=== PATIENT | female | born 1955 | race Caucasian/White ===

== ENCOUNTER → 2016-05-25 | Outpatient (CLI) | payer BC, OTHER ==
[~2016-05-25] MED LIST: ACET-1256 PO; ALPPOPS5 OPB; AMIT10TA6 PO; ASCA500 PO; ASPI81TA28 PO; CLTP PO; CMD75 PO; GLUC10007 PO; MULT-506 PO; SIMV20TA2 PO; TRAV0.00 OPB; WARF5TAB7 PO
--- NOTE | 2016-05-25 13:57 | MAMMOGRAPHY REPORT ---
BILATERAL DIGITAL SCREENING MAMMOGRAM WITH CAD: 05/25/2016 TECHNIQUE: Current study was also evaluated with a Computer Aided Detection (CAD) system. Bilatera l CC and MLO views were obtained. COMPARISON: Comparison is made to exams dated: 05/23/2015 mammogram, 05/13/2014 mammogram, 05/08/2013 m ammogram, 05/01/2012 mammogram, and 04/30/2011 mammogram - [facility]. BREAST COMPOSITION: There are scattered areas of fibroglandular density in both breasts. FINDINGS: No suspicious masses, calcifications, or areas of architectural distortion are noted in e ither breast. There has been no significant interval change compared to prior exams. Bilateral kamryn gn-appearing calcifications are not significantly changed. IMPRESSION: ACR BI-RADS CATEGORY 2: BENIGN There is no mammographic evidence of malignancy. A 1 year screening mammogram is recommended. The p atient will receive written notification of the results. Approximately 10% of breast cancers are not detected with mammography. A negative mammographic repor t should not delay biopsy if a clinically suggestive mass is present. Silvia Garza M.D. /:05/25/2016 07:45:41 City Engineer: Melva SEVILLA([place])(M), [facility] letter sent: Normal 1/2 BI-RADS Code: ACR BI-RADS Category 2: Benign
== END | disposition home or self-care (01) ==
LOC: C.MAMM 07:05
PROVIDERS: ATTEND Family Medicine
DX: Z12.31 Encounter for screening mammogram for malignant neoplasm of breast (principal)

== ENCOUNTER → 2017-05-28 | Outpatient (CLI) | payer BC, OTHER ==
--- NOTE | 2017-05-28 15:13 | MAMMOGRAPHY REPORT ---
BILATERAL DIGITAL SCREENING MAMMOGRAM TOMOSYNTHESIS WITH CAD: 05/28/2017 CLINICAL HISTORY: Routine screening. Patient has no complaints. TECHNIQUE: Breast tomosynthesis in addition to standard 2D mammography was performed. Current study was also evaluated with a Computer Aided Detection (CAD) system. COMPARISON: Comparison is made to exams dated: 05/25/2016 mammogram, 05/23/2015 mammogram, 05/13/2014 m ammogram, 05/12/2013 mammogram, 05/08/2013 mammogram, and 05/01/2012 mammogram - [facility]. BREAST COMPOSITION: There are scattered areas of fibroglandular density in both breasts. FINDINGS: There are possible groupings of faint microcalcifications in the upper outer anterior and subareolar right breast, for which additional spot magnification views are recommended. There are scattered benign-appearing punctate microcatheter dictations of the left breast. A stable nodular asymmetry in the medial anterior right breast on the CC view appears very similar to the 04/03 mammogram, most likely normal overlapping tissue. No other suspicious mass, architectural dist ortion or cluster of microcalcifications is seen. IMPRESSION: ACR BI-RADS CATEGORY 0: INCOMPLETE EVALUATION: NEED ADDITIONAL IMAGING EVALUATION The possible groupings of faint microcalcifications in the upper outer anterior and subareolar right breast need additional evaluation. The patient will be called to schedule an appointment. Approximately 10% of breast cancers are not detected with mammography. A negative mammographic report should not delay biopsy if a clinically suggestive mass is present. Ninoska Mcdonnell M.D. ay/:05/28/2017 07:45:11 Profiling Machine Setup Operator: Shiloh Olguin, [facility] letter sent: Addl Imaging 0 BI-RADS Code: ACR BI-RADS Category 0: Incomplete Evaluation: Need Additional Imaging Evaluation
== END | disposition home or self-care (01) ==
LOC: C.MAMM 07:08
PROVIDERS: ATTEND Family Medicine
DX: Z12.31 Encounter for screening mammogram for malignant neoplasm of breast (principal)

== ENCOUNTER → 2017-06-07 | Outpatient (CLI) | payer BC, OTHER ==
--- NOTE | 2017-06-07 13:53 | MAMMOGRAPHY REPORT ---
UNILATERAL RIGHT DIGITAL DIAGNOSTIC MAMMOGRAM: 06/07/2017 CLINICAL HISTORY: Callback from screening mammogram for right breast calcifications. TECHNIQUE: Spot magnification right cc and ML views were obtained. COMPARISON: Comparison is made to exams dated: 05/28/2017 mammogram, 05/25/2016 mammogram, 05/23/2015 m ammogram, 05/13/2014 mammogram, 05/12/2013 ultrasound, and 05/12/2013 mammogram - [facility]. BREAST COMPOSITION: There are scattered areas of fibroglandular density in the right breast. FINDINGS: Spot magnification views of the right breast demonstrate a small 8 mm cluster of punctate a nd amorphous calcifications within the right upper outer quadrant middle depth. A smaller similar-ap pearing 2 mm cluster is seen more superiorly on the MLO view. Additionally, loosely grouped faint am orphous calcifications are seen in the right subareolar breast on the ML which may be located lateral in the breast on the cc view. Recommend stereotactic biopsy of the dominant 8 mm cluster of calcifi cations in the right upper outer quadrant middle depth. Pending benign pathology results, recommend short interval follow-up mammograms to confirm stability of the other similar appearing calcification s. A small cluster of approximately 2-3 coarse benign-appearing calcifications is also seen within t he right 9:00 breast. IMPRESSION: ACR BI-RADS CATEGORY 4: SUSPICIOUS 1. Small 8 mm cluster of punctate and amorphous calcifications in the right upper outer quadrant mid dle depth. The calcifications are indeterminate and stereotactic biopsy is recommended for further e valuation. 2. Pending benign pathology results, recommend follow-up diagnostic mammograms of the right breast i n 6 months to confirm stability of other similar appearing groups of calcifications within the right superior breast and subareolar breast. A phone call was made to the physician's office to confirm faxed results were received. The patient has been verbally notified of the results. She tentatively scheduled the biopsy before leaving the [facility] emergency department. I will leave it up to the coagulation clinic if the patient can safely discontinue warfar in prior to the procedure, although the procedure can still be performed while on warfarin. Approximately 10% of breast cancers are not detected with mammography. A negative mammographic report should not delay biopsy if a clinically suggestive mass is present. Silvia Garza M.D. /:06/07/2017 12:04:[address] Services: Shiloh Pope RT(R)(M), [facility] letter sent: Abnormal 4/5 BI-RADS Code: ACR BI-RADS Category 4: Suspicious
== END | disposition home or self-care (01) ==
LOC: C.MAMM 11:13
PROVIDERS: ATTEND Family Medicine
DX: R92.8 Other abnormal and inconclusive findings on diagnostic imaging of breast (principal); R92.1 Mammographic calcification found on diagnostic imaging of breast

== ENCOUNTER → 2017-06-12 | Outpatient (CLI) | payer BC, OTHER ==
--- NOTE | 2017-06-12 13:20 | Discharge Instructions ---
Discharge Instructions Procedure Procedure Date: Jun 12, 2017. Reason for visit: Right Calcs. Discharge Discharge Date: Jun 12, 2017. Discharge Diagnosis: post right breast stereotactic guided biopsy Instructions Activity Recommendations: Additional Limitations (see below) Return to School/Work: no limitations Recommended Home Diet: No Limitations Provider Instructions: ACTIVITY RECOMMENDATIONS: * No lifting, pushing, pulling or exercising the affected side for three days. RETURN TO SCHOOL/WORK: * You may return to work/school after the procedure, but do not perform any strenuous activities for 24 to 48 hours. MEDICATIONS: * Tylenol (two 325 mg) every four to six hours if needed for mild pain (if not allergic to Tylenol). DIET: * Resume previous diet. SPECIAL CARE INSTRUCTIONS: * Keep biopsy site dry for 24 hours. May shower after 24 hours, but do not soak (bathe) incision. * May remove Tegaderm (plastic patch) tomorrow AFTER showering. * Leave the steri-strips on for one week. Allow the steri-strips to fall off by themselves. If not off after one week, you may remove them. You may place a Bandaid crosswise over the strips, if desired. * Apply ice 10 minutes on and 10 minutes off as needed. * Wear a bra at bedtime to sleep more comfortably for 2-3 days. * Your referring physician should have the results after approximately 5 to 7 business days. * Call for unusual bleeding, fever, drainage, etc or if you have any questions call [phone] during normal business hours or after hours call Dr Mcdonnell, . FOLLOW UP VISIT: Follow-up with Referring Physician as scheduled. Allergies Coded Allergies: Sulfa Drugs (Unverified Allergy, Severe, from childhood, thought very severe, swelling of throat., 05/17/11) Ross Bowers Recommendations: Call your doctor if: * Temperature above 101 degrees * Pain not relieved by pain medicine ordered * There is increased drainage or redness from any incision * You have any unanswered questions or concerns. Your Doctors Instructions noted above were prepared by provider Ninoska Mcdonnell. Patient Signature Section: Patient Instructions Signature Page Carmen Cobos Patient (or Guardian) Signature/Date: I have read and understand the instructions given to me by my caregivers. Caregiver/RN/Doctor Signature/Date: The above-named patient and/or guardian has received patient instructions on this date. + Original Patient Signature Page (only) stays with chart. Please make copy for patient.
--- NOTE | 2017-06-12 15:34 | MAMMOGRAPHY REPORT ---
STEREOTACTIC GUIDED BIOPSY RIGHT BREAST: 06/12/2017 CLINICAL HISTORY: 8 mm cluster of punctate and amorphous microcalcifications in the upper outer middl e one third of the right breast. Patient presents for stereotactic guided biopsy. COMPARISON: Comparison is made to exams dated: 06/07/2017 mammogram, 05/28/2017 mammogram, 05/25/2016 ma mmogram, 05/23/2015 mammogram, and 05/12/2013 ultrasound - [facility]. PATIENT CONSENT: After explaining the risks, benefits and alternatives of the procedure to the patien t, informed consent was obtained both verbally and in writing. Specific risks include: Bleeding, inf ection, puncture of adjacent structure, pain, nontarget biopsy, sampling error, metal allergy and med ication reaction. Bleeding risk is higher given the patient is on Coumadin and aspirin, with most re cent INR of 2.5. PROCEDURE DESCRIPTION: A time-out was performed and the right breast was confirmed as the site of bio psy. The patient was placed prone on the stereotactic biopsy table and the breast was placed in CC fr om above compression. A tomosynthesis view was obtained which demonstrate the calcifications near the edge of the targeting window therefore the patient was repositioned and another tomosynthesis mental health practitioner view was obtained. The second mental health practitioner view demonstrates a calcification centrally within the biopsy ta rgeting window and therefore the calcifications were targeted utilizing the coordinates obtained by t computer. The skin was prepped with Betadine. 1% Lidocaine with and without epinipherine was admi nistered as local anesthesia. A small skin incision was made. Through the incision, the needle was i nserted to the depth determined by the computer. 8 samples were obtained using a [employer] [place] 9-gauge vacuum-assisted biopsy device. The specimen radiograph demonstrated several arborist representative microcalci fications, therefore, a metallic marker was placed at the biopsy site. There was no immediate complic ation. Hemostasis was achieved after several minutes of manual compression. The samples were sent to pathology in a single appropriately labeled container. Postprocedure CC and ML views of the right breast were obtained. There is a new dumbbell-shaped bio psy marker clip and a 2 cm hematoma in the upper outer approximate 12:00 right breast at the site of the biopsy clustered calcifications in question. Pending benign pathology results, recommend follow- up right diagnostic mammograms including spot magnification views to ensure stability of other fainte r microcalcifications in the upper outer anterior right breast. IMPRESSION: STEREOTACTIC GUIDED BIOPSY Status post right breast stereotactic guided biopsy of a discrete cluster of punctate and amorphous m icrocalcifications in the upper outer middle one third of the breast. Pending benign pathology results, recommend right diagnostic mammograms including spot magnification views to ensure stability of other cluster calcifications in the right upper outer anterior breast. The patient will receive notification of the biopsy results from her referring physician. Ninoska Mcdonnell M.D. ay/:06/12/2017 13:39:09 Marble Polisher Hand: Melva MATHUR)(Dorita), [facility]
--- NOTE | 2017-06-12 15:38 | MAMMOGRAPHY REPORT ---
UNILATERAL RIGHT DIGITAL DIAGNOSTIC MAMMOGRAM: 06/12/2017 CLINICAL HISTORY: Status post right breast stereotactic biopsy of a small, 8 mm cluster of punctate m icrocalcifications in the upper outer middle one third of the right breast. Please refer to the report from right breast stereotactic guided biopsy performed at the same time fo r full detail. IMPRESSION: POST PROCEDURE IMAGING FOR MARKER PLACEMENT Please refer to the report from right breast stereotactic guided biopsy performed at the same time fo r full detail. Approximately 10% of breast cancers are not detected with mammography. A negative mammographic report should not delay biopsy if a clinically suggestive mass is present. Ninoska Mcdonnell M.D. ay/:06/12/2017 13:23:09 Internal Communications Intern: Melva SEVILLA(R)(Dorita), [facility] BI-RADS Code: Post Procedure Imaging For Marker Placement
== END | disposition home or self-care (01) ==
LOC: C.MAMM 12:24
PROVIDERS: ATTEND Family Medicine
DX: R92.0 Mammographic microcalcification found on diagnostic imaging of breast (principal); N60.91 Unspecified benign mammary dysplasia of right breast

== ENCOUNTER → 2017-10-24 | Outpatient (CLI) | payer BC, OTHER ==
[~2017-10-24] MED LIST changes: +ANAS1TAB7 PO
== END | disposition home or self-care (01) ==
LOC: C.MAMM 12:35
PROVIDERS: ATTEND Internal Medicine Hematology & Oncology
DX: M85.851 Other specified disorders of bone density and structure, right thigh (principal); M85.852 Other specified disorders of bone density and structure, left thigh; C50.919 Malignant neoplasm of unspecified site of unspecified female breast

== ENCOUNTER 2020-10-25 08:03 | Observation (INO) ==
--- NOTE | 2020-10-07 13:41 | PAT Medication Instructions ---
Medication Instructions Date of Service October 07, 2020 Home Medications Medication Instructions Recorded warfarin 5 mg tablet See Rx Instructions PO .COMPLEX 90 04/04/20 Days #130 tab enoxaparin 40 mg/0.4 mL 40 mg SUBCUT DAILY #10 syr 10/05/20 subcutaneous syringe amitriptyline 10 mg tablet 10 mg PO TID anastrozole 1 mg tablet 1 mg PO QAM ascorbic acid (vitamin C) 500 mg tablet 500 mg PO QPM aspirin 81 mg tablet,delayed release 81 mg PO HS calcium carbonate 600 mg (1,500 mg)-vitamin D3 400 unit tablet 1 tab PO BID glucosamine sulfate 1,000 mg capsule 1,000 mg PO BID multivitamin 1 tab PO QAM simvastatin 20 mg tablet 20 mg PO QPM alendronate 70 mg PO WK brimonidine [Alphagan P] 1 drp OPB BID travoprost [Travatan Z] 1 drp OPB HS acetaminophen 650 mg tablet,extended release 650 mg PO Q8H PRN warfarin 5 mg tablet See Rx Instructions PO .COMPLEX enoxaparin 40 mg/0.4 mL subcutaneous syringe 40 mg SUBCUT DAILY Continue as directed alendronate 70 mg PO WK ASK your prescriber and surgeon warfarin 5 mg tablet See Rx Instructions PO .COMPLEX enoxaparin 40 mg/0.4 mL subcutaneous syringe 40 mg SUBCUT DAILY anastrozole 1 mg tablet 1 mg PO QAM STOP taking 2 weeks before surgery (or as soon as possible if surgery is within 2 weeks) glucosamine sulfate 1,000 mg capsule 1,000 mg PO BID DO NOT take the morning of surgery calcium carbonate 600 mg (1,500 mg)-vitamin D3 400 unit tablet 1 tab PO BID multivitamin 1 tab PO QAM Take morning of surgery With a small sip of water, OTHERWISE NOTHING TO EAT OR DRINK AFTER MIDNIGHT: amitriptyline 10 mg tablet 10 mg PO TID brimonidine [Alphagan P] 1 drp OPB BID acetaminophen 650 mg tablet,extended release 650 mg PO Q8H PRN (okay to take up to 4 hours prior to surgery if needed) Take evening before surgery amitriptyline 10 mg tablet 10 mg PO TID ascorbic acid (vitamin C) 500 mg tablet 500 mg PO QPM aspirin 81 mg tablet,delayed release 81 mg PO HS (continue as normal unless told otherwise by surgeon) calcium carbonate 600 mg (1,500 mg)-vitamin D3 400 unit tablet 1 tab PO BID simvastatin 20 mg tablet 20 mg PO QPM brimonidine [Alphagan P] 1 drp OPB BID travoprost [Travatan Z] 1 drp OPB HS acetaminophen 650 mg tablet,extended release 650 mg PO Q8H PRN (if needed) Other Notes If you have any questions please call us at [phone] or [phone] or [phone] or [phone]
--- NOTE | 2020-10-10 10:50 | Anesthesiology Consultation ---
Date of Service October 10, 2020 Assessment & Plan (1) Encounter for pre-operative examination: - COVID screening: Per assessment on 10/10: Travel screen negative since 09/17 (patient had traveled to [place] to visit friends/sight seeing 09/08-09-17; all frien ds vaccinated). Patient vaccinated. No further travel planned prior to surgery. Return from travel > 5 days prior to preop COVID testing. No known COVID-19 positive contacts or current COVID-19 related symptoms. Surgeon arranging preop COVID testing. Awaiting results. - Check coags AM DOS (warfarin instructions per surgeon/prescriber- per pt, lovenox bridging arranged) - Possible difficult intubation: Per patient, was told that she was a difficult intubation with hysterectomy done in 1995 ([facility]) but that they were able to do the surgery. She states she has had several surgeries with general anesthesia/intubations since then without issue. Chart Review Chart Review: Acceptable Risk for Surgery (pending surgeon-ordered PCP clearance) and Patient seen in Pre Admission Testing History Surgery Operation Date: 10/25/20 07:00 Proposed Procedures p Left Total Knee Arthroplasty - Juan Vazquez MD Height/Weight Height: 5 ft 6 in Weight: 88 kg Allergies Allergy/AdvReac Type Severity Reaction Status Date / Time Sulfa (Sulfonamide Allergy Severe Swelling Verified 09/30/20 14:23 Antibiotics) of throat polaroid picture chemicals Allergy Severe Rash, skin Uncoded 10/10/20 10:50 irritation Medications Home Medications Medication Instructions Recorded Confirmed Last Taken amitriptyline 10 mg tablet 10 mg PO TID tab 12/20/17 10/05/20 05/02/20 anastrozole 1 mg tablet 1 mg PO QAM 12/20/17 10/05/20 05/02/20 ascorbic acid (vitamin C) 500 mg 500 mg PO QPM 12/20/17 10/05/20 05/02/20 tablet aspirin 81 mg tablet,delayed 81 mg PO HS 12/20/17 10/05/20 05/02/20 release calcium carbonate 600 mg (1,500 1 tab PO BID 12/20/17 10/05/20 05/02/20 mg)-vitamin D3 400 unit tablet glucosamine sulfate 1,000 mg 1,000 mg PO BID 12/20/17 10/05/20 05/02/20 capsule multivitamin 1 tab PO QAM 12/20/17 10/05/20 05/02/20 simvastatin 20 mg tablet 20 mg PO QPM 12/20/17 10/05/20 05/02/20 alendronate 70 mg PO WK 11/13/18 10/05/20 05/02/20 brimonidine [Alphagan P] 1 drp OPB BID 11/13/18 10/05/20 05/02/20 travoprost [Travatan Z] 1 drp OPB HS 11/13/18 10/05/20 05/01/20 acetaminophen 650 mg 650 mg PO Q8H PRN 01/20/20 10/05/20 05/02/20 tablet,extended release warfarin 5 mg tablet See Rx Instructions PO .COMPLEX 90 04/04/20 10/05/20 05/02/20 Days #130 tab enoxaparin 40 mg/0.4 mL 40 mg SUBCUT DAILY #10 syr 10/05/20 10/05/20 Unknown subcutaneous syringe Past Medical History Medical History Breast cancer s/p right breast lumpetomy Degenerative arthritis DVT (deep venous thrombosis) 2004, 2008 Factor V Leiden Glaucoma Hx of malignant neoplasm of skin Hyperlipidemia Obesity Osteoarthritis Pulmonary embolism 2008 Exercise / Class Metabolic Activity II 4-5 Yardwork/Stairs/Walk up hill (one FS (no CP, no SOB)) Past Family History Family History Father Hypertension Sister Bilateral kidney stones Protein C deficiency Aunt Diabetes Son Factor 5 Leiden mutation, heterozygous Other No family history of adverse response to anesthesia Past Surgical History Surgical History H/O bladder repair surgery Bladder prolapse H/O cerebral aneurysm repair ~2014 ([facility] H/O hysterectomy with oophorectomy H/O left knee surgery History of bilateral tubal ligation History of colonoscopy History of dilatation and curettage ~1979 Hx of tonsillectomy S/P breast lumpectomy Right Status post Mohs surgery Past Anesthesia History Difficult Airway (Per patient, was told that she was a difficult intubation with hysterectomy done in 1995 ([facility]) but that they were able to do the surgery. She states she has had several surgeries with general anesthesia/intubations since then without issue) and No Family Hx of Anesthesia Complications History of PONV No Hx of PONV and No Hx of Motion Sickness Social History Smoking Status: Never smoker Do You Dip or Chew Tobacco: No Hx Alcohol Use: Yes Alcohol type: wine alcohol intake frequency: holidays/special occasions only Hx Substance Use: No substance use type: does not use Review of Systems Patient denies chest pain, shortness of breath, dyspnea on exertion, fever, chills, cough, wheezing, palpitations. Physical Exam Vital Signs VITALS BP 113/77 P 78 TEMP 99.0 SP02 97%RA RESP 16 PHYSICAL Full cervical extension range of motion. Full TMJ range of motion. TMD 3 finger breaths Mallampati Score 3 Dentition: full upper denture Lungs: clear throughout to auscultation Cardiac: regular rate and rhythm, no murmurs noted Spine: normal Carotid arteries: negative bruit Extremities: no edema Lab Results Anesthesia Preop Results Results Anesthesia Widget: WBC 7.28 K/uL (4.8-10.8) 10/10/20 Hgb 13.9 g/dL (12.0-16.0) 10/10/20 Hct 41.5 % (37-47) 10/10/20 Plt 250 K/uL (130-400) 10/10/20 Na 140 mmol/L (136-145) 10/10/20 K 4.7 mmol/L (3.5-5.1) 10/10/20 Cl 108 mmol/L (98-107) H 10/10/20 CO2 30 mmol/L (21-32) 10/10/20 BUN 16 mg/dl (7-18) 10/10/20 Creat 0.73 mg/dl (0.6-1.2) 10/10/20 Glucose Level 97 mg/dl (70-99) 10/10/20 PT 27.2 Seconds (9.0-12.0) H 10/10/20 PTT 44.4 Seconds (21.0-31.0) H 10/10/20 INR 2.9 (0.9-1.1) H 10/10/20 Blood Type A Positive 10/10/20 Antibody Screen NEGATIVE 10/10/20 Testing Electrocardiogram Date: 10/10/20 Findings: + NSR @ (80) Chest X-Ray Date: 05/02/20 FINDINGS: AP and lateral chest radiographs are compared to study dated 11/25/2008. The heart is top normal for projection. The pulmonary vasculature is noncongested. Chronic interstitial thickening is similar to previous. There is mild bibasilar scarring/atelectasis. The lungs and pleural spaces are otherwise clear. There is no pneumothorax. The skeletal structures are osteopenic. The bony thorax appears intact. IMPRESSION: No active disease in the chest.
[~2020-10-25 08:03] MED LIST changes: -ACET-1256 PO; +ACETAMINOPHEN 500 MG TAB PO SCH; -ALPPOPS5 OPB; -AMIT10TA6 PO; -ANAS1TAB7 PO; -ASCA500 PO; -ASPI81TA28 PO; +BUPIVACAINE 0.5 % 5 MG/1 ML PF 10ML VIAL ONE; -CLTP PO; -CMD75 PO; +EPINEPHrine INJ 1 MG/ML AMP ONE; +FAMOTIDINE 20 MG TAB PO SCH; +GABAPENTIN 300 MG CAP PO SCH; -GLUC10007 PO; +LR 500ML BOLUS, THEN 15ML/HR IV SCH; +LR 60ML/HR IV SCH; +METOCLOPRAMIDE HCL 10 MG TABLET PO SCH; -MULT-506 PO; +ROPIVACAINE 0.5% 5 MG/ML 30 ML VIAL ONE; +ROPIVACAINE 0.5% HCL/PF 150 MG, BUPIVACAINE 0.75% MPF 20 ML, EPINEPHrine 0.15 MG, Ketor... INFIL SCH; -SIMV20TA2 PO; +TRANEXAMIC ACID / 0.7% NACL 1,000 MG/100 ML BAG IV SCH; +TRANEXAMIC ACID 1,000 MG **IV Pre-op IV SCH; -TRAV0.00 OPB; -WARF5TAB7 PO; +ceFAZolin 2000MG 2,000 MG/15 ML SYR IV SCH; +cloNIDine HCL 0.1 MG/24 HR TRANSDERM SYS TD SCH; +dexAMETHasone 4 MG TAB PO SCH; +oxyCODONE HCL 10 MG TABCR (OxyCONTIN) PO SCH; +traMADol HCL 50 MG TABLET PO SCH
[2020-10-25] MEDS ORDERED: ONDANSETRON INJ 2 MG/ML 2 ML VIAL IV PRN ×2 (08:50→16:39)
[2020-10-25] MEDS ORDERED: ePHEDrine sulfate 50 MG/ML AMP IV PRN (08:50)
[2020-10-25] MEDS ORDERED: HYDROmorphone INJ 1 MG/ML SYRINGE IV PRN (08:50)
[2020-10-25] MEDS ORDERED: fentaNYL citrate 100 MCG/2 ML VIAL IV PRN (08:50)
[2020-10-25] MEDS ORDERED: LABETALOL HCL IV 5 MG/ML 20ML IV PRN (08:50)
[2020-10-25] MEDS ORDERED: ATROPINE SULFATE 0.1 MG/ML 10ML SYR IV PRN (08:50)
[2020-10-25] MEDS ORDERED: PHENYLEPHRINE 100MCG/ML 5ML SYR IV PRN (08:50)
[2020-10-25 08:55] LABS: Prothrombin Time 10.1 Seconds (9.0-12.0)
[2020-10-25] MEDS ORDERED: MIDAZOLAM HCL 1 MG/ML 2ML VIAL ONE (10:31)
--- NOTE | 2020-10-25 10:38 | History & Physical Bridge Note ---
Date of Service October 25, 2020 History & Physical Bridge Note I have examined the patient, reviewed the History & Physical and in the interval since the performance of the History & Physical I have noted the following changes of clinical significance: no changes noted
[2020-10-25] MEDS: VANCOMYCIN HCL 1000MG/20ML VIAL ONE ×2 (11:56→12:59)
[2020-10-25] MEDS ORDERED: LIDOCAINE 2% 2 ML VIAL/AMP(20MG/ML) INFIL ONE (12:43)
[2020-10-25] MEDS ORDERED: PROPOFOL IV EMULSION 10 MG/ML 20 ML VIAL IV ONE ×2 (12:43→13:24)
[2020-10-25] MEDS ORDERED: PHENYLEPHRINE 100MCG/ML 5ML SYR ONE (12:43)
[2020-10-25] MEDS: ORTHO JOINT ANESTHETIC ONE ×2 (14:01→18:27)
--- NOTE | 2020-10-25 14:15 | Operative Report ---
Post Operative Report Pre & Post Diagnosis Operation Date: 10/25/20 10:20 Pre-Op Diagnosis: Left Knee Degenerative Joint Disease Post-Op Diagnosis: Left Knee Degenerative Joint Disease I identified the patient and participated in the time-out.: Yes Procedure Operation Date: 10/25/20 10:20 Actual Procedures p Left Total Knee Arthroplasty(Left) - Juan Vazquez MD Surgeon Juan Vazquez MD Car Retarder Operator Manda Mitchell no resident or fellow available. Estimated Blood Loss 5 Findings Consistent with Post-Op Diagnosis Specimens Bone and soft tissue Anesthesia Type MAC Spinal Regional Complications none Disposition Disposition: Recovery Room Indications Patient is 65. She has left knee arthritis refractory to nonsurgical methods of management is wishes to proceed with operative intervention. Description of Procedure Informed consent obtained. Patient identified. She identified the operative site as the left knee. I marked with my initials. A preoperative surgical timeout was performed. A preop dose of IV antibiotics was given. She was taken to the operating room positioned supine on the operating room table and the anesthetic was administered. Tourniquet was applied to the left thigh and a bump was placed under the left calf. The leg was prepped and draped in the usual sterile fashion. DVT prophylaxis with foot pumps intraoperatively and postoperatively she'll be started back on her Coumadin. Plan per Coumadin clinic. Exam under anesthesia revealed no pathological ligamentous laxity. She had a L-shaped incision based medially coursing laterally distally. There was no effusion. Range of motion 0/7/ 115-120. Preop TXA given. Limb exsanguinated with Esmarch. Tourniquet applied to 250 mmHg. A longitudinal incision was made beginning proximally and then coursing medially to incorporate her prior incision. This then coursed distally medially and then eventually laterally were I brought it at a 90 degree angle away from the prior incision just over the tibial tubercle and distally for several centimeters. A full- thickness flap was created and elevated laterally far enough to visualize the patella. A medial parapatellar arthrotomy was made. Soft tissue in the anterior aspect of the distal femur was resected. The retropatellar fat pad was removed. A medial release was performed in the synovial reflection in the lateral gutter was removed. There were grade 4 changes with large osteophytes in the patellofemoral joint. Partial medial meniscus missing. Lateral compartment showed osteophytes but relatively normal cartilage and meniscus. Both menisci were removed. The ACL was absent or high-grade chronic partial tear. PCL was intact and was removed. Notch osteophytes removed. The knee was unable to be subluxated. The tibial tubercle was marked. Intramedullary alignment ryley was inserted between and just in front of the tibial spines. The 0 degree cutting block was applied and aligned. It was pinned into place and the slope was adequate as was the coronal plane alignment bisecting the second ray and intersecting the transmalleolar axis. It was set to take 10 off the lateral side corresponding to a four cut medially with a 0 degree block. This was made. Cut was flat. Sized to a 2.5. Osteophytes removed. Enterprise Business Architect hole made into the distal femur followed by insertion of the distal femoral cutting block. 7 degree valgus based upon preoperative templating 14 mm thick because of the flexion contracture. Collateral ligaments were protected. This cut was made and the extension gap was a symmetric 10. Epicondylar axis marked out. Distal femoral sizing guide applied. Sized to a three. External rotation drill holes were made matching the epicondylar axis. Size 3 anterior down cutting block was applied. Collateral ligaments protected and the cuts were made. Posterior medial and lateral osteophytes were made. The lateral compartment was asymmetrically tight at this point. I went back and checked all my cuts and alignments and found them to be true. The popliteus was tight and this was released and this improved millimeter or so. I then had to perforate the LCL with a spinal needle fractionally lengthening it couple millimeters. Initially it was about an eight laterally and a 10 medially and then I was able to get a 10 block and without any difficulty. Box cutting guide applied and lateralized. The box cut was made. The trial was placed on the femur. The tibia was prepped with the keel and punch and drill. Trialing was performed with a size 10 implant which showed full extension flexion to about one 10-1 15 easily. There was trace MCL laxity in mid position but the knee was stable in full extension at at 90 degrees of flexion. The patella was measured to be 23 mm in thickness. The 35 oval dome patella was selected. The guide was set to preserve 15. The cut was made. Residual patellar thickness was just between 14 and 15. The paddle was distal lysed and medialized and oriented properly for the trochlear groove. Patellar tracking was fine for no hands technique. The trial components were removed. The bony surfaces were meticulously cleaned with pulse lavage. The canals were plugged and Ortho joint mix was injected into the back of the knee. Two bags of Simplex P cement were mixed and while in a doughy state the femur tibia and patella were cemented in the place. The patella was clamped the knee was held in full extension until the cement hardened at 95 minutes and the tourniquet was let down. Meticulous hemostasis performed with minimal bleeding. The remainder the Ortho joint mix was injected and irrigation was performed. Cement was removed from the back of the knee as encountered in the trialing was consistent with the previous laxity pattern. A 12.5 mm spacer could not be inserted in my opinion and the knee was not hyperextended. This final polyethylene insert was applied. Buhl assisted flexion with extensor mechanism closed was 115. The composite patellar thickness was 23. Soft tissues were kept moist. The extensor mechanism was closed with interrupted #2 FiberWire above the equator the patella and interrupted #1 Vicryl below. The skin was closed in layers with 0 and 2-0 Vicryl. [place]. Xeroform 4 x 4's ABD full-length Sin wrap and knee immobilizer. Patient awakened from anesthesia without difficulty and taken to recovery room in stable condition. Resected bone and soft tissue sent for specimen. There were no complications. Counts were correct and blood loss was 5 cc. At the conclusion the operation spoke to her informed him my findings and gave postop instructions. She'll be rehabilitated according to the total knee protocol. Components inserted were a J[employer]J PFC Sigma rotating platform knee a 35 mm three peg oval dome patella a size 10 mm thick posterior stabilized size 3 poly ethylene. A size 3 posterior stabilized femoral component left side. A size 2.5 keeled mobile-bearing tibial tray. I attest to the content of the Intraoperative Record and any orders documented therein. Any exceptions are noted below.
--- NOTE | 2020-10-25 14:31 | Operative Report ---
Post Operative Report Pre & Post Diagnosis Operation Date: 10/25/20 10:20 Pre-Op Diagnosis: Left Knee Degenerative Joint Disease Post-Op Diagnosis: Left Knee Degenerative Joint Disease I identified the patient and participated in the time-out.: Yes Procedure Operation Date: 10/25/20 10:20 Actual Procedures p Left Total Knee Arthroplasty(Left) - Juan Vazquez MD Surgeon Juan Vazquez M.D. Inspector Filters Manda Mitchell no resident or fellow available. Estimated Blood Loss 5 Findings Consistent with Post-Op Diagnosis DJD left knee Specimens bone and soft tissue Anesthesia Type MAC Spinal Regional Description of Procedure Patient was taken to the operating room, placed under spinal anesthesia, given peripheral nerve block. Time out performed, prepped and draped in routine sterile fashion. She was given 2gm IV ancef for surgical prophylaxis. I was present during the entire case, please see Dr. Vazquez's operative report for further detail. Patient was awakened and taken to the recovery room in stable condition. I attest to the content of the Intraoperative Record and any orders documented therein. Any exceptions are noted below.
--- NOTE | 2020-10-25 14:50 | XRay Report ---
XR knee LT 1 or 2V routine CLINICAL HISTORY: Postoperative evaluation. COMPARISON: Knee radiographs September 21, 2020. FINDINGS: Alignment of the total left knee arthroplasty is anatomic. There is no periprosthetic frac ture. There are no unexpected radiopaque foreign bodies. There are skin jaime. IMPRESSION: Expected findings following total left knee arthroplasty. ACT 112: Negative or not required by law. Electronically signed by: Chadwick Chan M.D. 10/25/2020 2:48 PM
--- NOTE | 2020-10-25 14:57 | Anesthesiology Progress Note ---
Date of Service October 25, 2020 Anesthesia Post Procedure Vital Signs Vital Signs: Temp Pulse Pulse Resp BP BP Pulse Ox 10/25/20 14:50 37.5 C 76 14 119/85 97 10/25/20 14:40 68 15 112/80 100 10/25/20 14:30 70 14 116/74 100 10/25/20 14:20 76 14 111/79 100 10/25/20 14:14 37.2 C 85 85 16 111/70 111/70 97 10/25/20 08:55 36.7 C 77 20 114/89 95 Transfer of Care Handoff Completed per policy Notes Mental Status: alert / awake / arousable Patient Amnestic to Procedure: Yes Nausea / Vomiting: adequately controlled Pain: adequately controlled Airway Patency, RR, SpO2: stable & adequate BP & HR: stable & adequate Hydration State: stable & adequate Neuraxial Anesthesia: was administered and sensory block is resolving Anesthetic Complications: no major complications apparent and Pt Satisfied with anesthetic care
[2020-10-25] MEDS ORDERED: oxyCODONE HCL IR 5 MG TAB (IMMEDIATE RELEASE) PO PRN (16:39)
[2020-10-25] MEDS ORDERED: bisacodyL 10 MG SUPP PR PRN (16:39)
[2020-10-25] MEDS ORDERED: WARFARIN SOD 10 MG TAB PO SCH (16:39)
[2020-10-25] MEDS ORDERED: NALOXONE HCL 0.4 MG/1 ML VIAL/CARP IV PRN (16:39)
[2020-10-25] MEDS ORDERED: MAGNESIUM HYDROXIDE SUSP 30 ML UDC PO PRN (16:39)
[2020-10-25] MEDS ORDERED: hydrALAZINE HCL 20 MG/ML VIAL IV PRN (16:39)
[2020-10-25] MEDS ORDERED: HYDROmorphone INJ 0.5 MG/0.5 ML SYR IV PRN (16:39)
[2020-10-25] MEDS ORDERED: METOCLOPRAMIDE HCL INJ 5 MG/ML 2 ML VIAL IV PRN (16:39)
--- NOTE | 2020-10-25 17:07 | Orthopedic Progress Note ---
Date of Service October 25, 2020 Assessment & Plan (1) S/P total knee replacement using cement: Plan: POD 0 - s/p left total knee arthroplasty Ice and elation as needed for pain/swelling Allowed out of bed, WBAT LLE with walker as tolerated Knee immobilizer when out of bed. Coumadin to be resumed tonight with Lovenox bridging for DVT prophylaxis. PT/OT to start in AM Regular diet as ordered Pain medication as prescribed Plan for home tomorrow with home health/PT. SS/CM to eval for disposition needs. All questions answered, post op x-rays reviewed Will discuss findings with Dr. Vazquez. Will re-eval in AM. Admission and Anticipated Discharge Date Admission Date: October 25, 2020 Subjective Patient is doing well. Alert and oriented, no complaints of pain in left knee. States that it still feels numb and hard to move. Denies nausea and vomiting, but nothing to eat since surgery yet. Denies chest pain or shortness of breath. Physical Exam Musculoskeletal: Left knee dressings clean dry and intact. Strength with dorsiflexion and plantarflexion of toes and ankle 4/5. Distal sensation normal to light touch. Alert and oriented. Results & Data ([facility]) Vital Signs (Past 12 Hours) Vital Signs Temp Pulse Pulse Pulse Resp BP BP 10/25/20 16:15 36.6 C 90 16 130/93 10/25/20 15:55 85 15 136/83 10/25/20 15:40 82 20 138/93 10/25/20 15:30 89 16 138/90 10/25/20 15:20 82 20 135/92 10/25/20 15:10 72 16 118/87 10/25/20 15:00 72 16 118/81 10/25/20 14:50 37.5 C 76 14 119/85 10/25/20 14:40 68 15 112/80 10/25/20 14:30 70 14 116/74 10/25/20 14:20 76 14 111/79 10/25/20 14:14 37.2 C 85 85 16 111/70 111/70 10/25/20 08:55 36.7 C 77 20 114/89 Pulse Ox 10/25/20 16:15 97 10/25/20 15:55 94 10/25/20 15:40 97 10/25/20 15:30 100 07/27/21 15:20 96 10/25/20 15:10 98 10/25/20 15:00 100 10/25/20 14:50 97 10/25/20 14:40 100 10/25/20 14:30 100 10/25/20 14:20 100 10/25/20 14:14 97 10/25/20 08:55 95 Diagnostic Findings XR knee LT 1 or 2V routine CLINICAL HISTORY: Postoperative evaluation. COMPARISON: Knee radiographs September 21, 2020. FINDINGS: Alignment of the total left knee arthroplasty is anatomic. There is no periprosthetic fracture. There are no unexpected radiopaque foreign bodies. There are skin jaime. IMPRESSION: Expected findings following total left knee arthroplasty.
[2020-10-25] MEDS: SODIUM CHLORIDE 0.9% 1000ML 1,000 ML IV SCH (17:52)
[2020-10-25] MEDS: CHECK CLONIDINE PATCH PLACEMENT SCH ×2 (18:12→23:29)
[2020-10-25] MEDS: KETOROLAC TROMETHAMINE 15 MG/ML VIAL IV SCH ×2 (18:13→23:30)
[2020-10-25] MEDS: ceFAZolin 2000MG 2,000 MG/15 ML SYR IV SCH (18:30)
[2020-10-25] MEDS ORDERED: SENNA 8.6 MG TAB PO SCH (21:00)
[2020-10-25] MEDS ORDERED: TRAVOPROST Z 0.004% OPH SOLN 2.5 ML BTL OPB SCH (21:00)
[2020-10-25] MEDS ORDERED: ASCORBIC ACID 500 MG TAB PO SCH (21:00)
[2020-10-25] MEDS ORDERED: ASPIRIN 81 MG ECTAB PO SCH (21:00)
[2020-10-25] MEDS ORDERED: SIMVASTATIN 20 MG TAB PO SCH (21:00)
[2020-10-25] MEDS: AMITRIPTYLINE HCL 10 MG TAB PO SCH (21:48)
[2020-10-25] MEDS: DOCUSATE SODIUM 100 MG CAP PO SCH (21:51)
[2020-10-25] MEDS: CALCIUM 600MG + VIT D 400 IU TAB PO SCH (21:51)
[2020-10-25] MEDS: ACETAMINOPHEN 500 MG TAB PO SCH (21:52)
[2020-10-25] MEDS: BRIMONIDINE TARTRATE (ALPHAGAN P) 5 ML DROPS OPB SCH (23:28)
[2020-10-26] MEDS: ceFAZolin 2000MG 2,000 MG/15 ML SYR IV SCH (03:44)
[2020-10-26] MEDS: SODIUM CHLORIDE 0.9% 1000ML 1,000 ML IV SCH (05:01)
[2020-10-26] MEDS: ACETAMINOPHEN 500 MG TAB PO SCH ×2 (05:24→13:13)
[2020-10-26] MEDS: KETOROLAC TROMETHAMINE 15 MG/ML VIAL IV SCH ×2 (05:25→13:15)
[2020-10-26 07:21] LABS: Hematocrit (blood only) 35.3 % (37-47); Hemoglobin 11.8 g/dL (12.0-16.0); Mean Corpuscular Hemoglobin 31.4 pg (25-34); Mean Corpuscular Hgb Conc 33.4 g/dL (32-36); Mean Corpuscular Volume 93.9 fL (80-100); Mean Platelet Volume 9.8 fL (7.4-10.4); Platelet Count 188 K/uL (130-400); RDW Coefficient of Variation 12.8 % (11.5-14.5); RDW Standard Deviation 43.5 fL (36.4-46.3); Red Blood Count 3.76 M/uL (4.2-5.4); White Blood Count 12.28 K/uL (4.8-10.8)
[2020-10-26 07:30] LABS: Prothrombin Time 10.6 Seconds (9.0-12.0)
[2020-10-26 07:56] LABS: BUN Creatinine Ratio 17.8 (10-20); Calcium 8.7 mg/dl (8.5-10.1); Creatinine Clr Calc Pharmacy 83.2 ml/min; Est GFR (African American) 102.2 ml/min; Est GFR (Non-African American) 88.1 ml/min; Potassium 3.7 mmol/L (3.5-5.1)
[2020-10-26] MEDS ORDERED: ENOXAPARIN INJ 40 MG/0.4 ML SYR SQ SCH (08:00)
[2020-10-26] MEDS ORDERED: dexAMETHasone 4 MG TAB PO SCH (08:00)
[2020-10-26] MEDS ORDERED: MULTIVITAMIN TAB PO SCH (09:00)
[2020-10-26] MEDS ORDERED: ANASTROZOLE 1 MG TAB PO SCH (09:00)
--- NOTE | 2020-10-26 09:39 | Orthopedic Progress Note ---
Date of Service October 26, 2020 Assessment & Plan (1) S/P total knee replacement using cement: Plan: Doing very well. She will have PT and OT done today. She has started back on her Coumadin and bridging Lovenox per the Coumadin clinic protocol which has been provided. We talked about appropriate activity levels bathing wound care elevation icing. If she does well today we may consider discharge with home health services and will follow-up after PT is completed today. Pain medication at home. Her pain is well controlled. The surgical results and findings are discussed with her. Present on Admission?: No (2) Current use of half-way anticoagulation: (3) Factor V Leiden: Admission and Anticipated Discharge Date Admission Date: October 25, 2020 Subjective Doing well. Pain controlled. Has been doing lots of exercises. Have asked her to tone things back a bit. Physical Exam Physical Exam: Dressing clean and dry. Ankle and toe plantarflexion dorsiflexion eversion 5 out of 5. Posterior tib 1 polyp plus. Left leg. Sensation intact. Results & Data ([facility]) Vital Signs (Past 12 Hours) Vital Signs Temp Pulse Pulse Resp BP BP Pulse Ox 10/26/20 07:00 36.5 C 83 18 144/90 H 99 10/26/20 03:01 36.4 C L 85 18 127/80 99 10/25/20 22:34 36.7 C 96 H 16 116/76 97 Laboratory Results 10/26/20 10/26/20 10/26/20 Range/Units 06:39 06:39 06:39 WBC (4.8-10.8) K/uL RBC (4.2-5.4) M/uL Hgb (12.0-16.0) g/dL Hct (37-47) % MCV (80-100) fL MCH (25-34) pg MCHC (32-36) g/dL RDW Std Deviation (36.4-46.3) fL RDW Coeff of Noreen (11.5-14.5) % Plt Count (130-400) K/uL MPV (7.4-10.4) fL PT 10.6 (9.0-12.0) Seconds INR 1.0 (0.9-1.1) Sodium 142 (136-145) mmol/L Potassium 3.7 (3.5-5.1) mmol/L Chloride 111 H (98-107) mmol/L Carbon Dioxide 26 (21-32) mmol/L Anion Gap 6.0 (3-11) BUN 13 (7-18) mg/dl Creatinine 0.71 (0.6-1.2) mg/dl Est Cr Clr Drug Dosing 83.2 ml/min Est GFR ( Amer) 102.2 ml/min Est GFR (Non-Af Amer) 88.1 ml/min BUN/Creatinine Ratio 17.8 (10-20) Glucose 108 H (70-99) mg/dl Calcium 8.7 (8.5-10.1) mg/dl Hepatitis C Ab Screen Pending 10/26/20 Range/Units 06:39 WBC 12.28 H (4.8-10.8) K/uL RBC 3.76 L (4.2-5.4) M/uL Hgb 11.8 L (12.0-16.0) g/dL Hct 35.3 L (37-47) % MCV 93.9 (80-100) fL MCH 31.4 (25-34) pg MCHC 33.4 (32-36) g/dL RDW Std Deviation 43.5 (36.4-46.3) fL RDW Coeff of Noreen 12.8 (11.5-14.5) % Plt Count 188 (130-400) K/uL MPV 9.8 (7.4-10.4) fL PT (9.0-12.0) Seconds INR (0.9-1.1) Sodium (136-145) mmol/L Potassium (3.5-5.1) mmol/L Chloride (98-107) mmol/L Carbon Dioxide (21-32) mmol/L Anion Gap (3-11) BUN (7-18) mg/dl Creatinine (0.6-1.2) mg/dl Est Cr Clr Drug Dosing ml/min Est GFR ( Amer) ml/min Est GFR (Non-Af Amer) ml/min BUN/Creatinine Ratio (10-20) Glucose (70-99) mg/dl Calcium (8.5-10.1) mg/dl Hepatitis C Ab Screen
[2020-10-26] MEDS: CHECK CLONIDINE PATCH PLACEMENT SCH (09:41)
[2020-10-26] MEDS: BRIMONIDINE TARTRATE (ALPHAGAN P) 5 ML DROPS OPB SCH (09:43)
[2020-10-26] MEDS: CALCIUM 600MG + VIT D 400 IU TAB PO SCH (09:44)
[2020-10-26] MEDS: DOCUSATE SODIUM 100 MG CAP PO SCH (09:44)
[2020-10-26] MEDS: AMITRIPTYLINE HCL 10 MG TAB PO SCH (09:45)
[2020-10-26] MEDS ORDERED: CeleBREX 200 MG CAP PO SCH (21:00)
--- NOTE | 2020-10-27 16:40 | Discharge Summary ---
Date of Service October 27, 2020 Discharge Data Procedures Performed Operation Date: 10/25/20 10:20 Actual Procedures p Left Total Knee Arthroplasty(Left) - Juan Vazquez MD Hospital Course (1) S/P total knee replacement using cement: Patient was admitted to [facility] after undergoing an elective left total knee arthroplasty by Dr. Vazquez on October 25, 2020. Her surgery was performed with spinal anesthetic, peripheral nerve block and IV sedation. She tolerated the procedure well without any intraoperative complications. She was given 2 g of IV Ancef for surgical prophylaxis which was continued for 24 hours after surgery. She was medically cleared preoperatively for her upcoming procedure. She was placed in observation after her surgery. Postoperative x-rays of her left knee were obtained in the recovery room and showed a stable prosthesis. She was allowed out of bed, weight-bear as tolerated on her left lower extremity with the knee immobilizer in place when out of bed. She used a walker to assist with ambulation. She was given a regular diet after surgery. She tolerated regular diet without any postoperative nausea or vomiting. She was given oral Tylenol and oxycodone and IV Dilaudid as needed for postoperative pain control. Postoperatively her pain was well controlled with oral pain medication. She was seen and evaluated by physical therapy and Occupational Therapy on postoperative day 1. She did well out of bed and was deemed safe for discharge to her home. She was seen by case management and social welfare administrator for disposition needs. She was set up with home health and home physical therapy. Postoperative vital signs remained stable as well as her postoperative laboratory work. Discharge instructions were reviewed and provided at the time of discharge. All questions were answered. She does not develop any postoperative complications. She was discharged to her home in stable condition on October 18, 2020 with her .
== END 2020-10-26 14:20 | disposition home health service (06) ==
LOC: ASU 08:03 → PACUINP 08:03 → 3E 14:25

== ENCOUNTER 2022-10-23 05:09 | Observation (INO) ==
--- NOTE | 2022-10-08 11:04 | PAT Medication Instructions ---
Medication Instructions Date of Service October 08, 2022 Home Medications amitriptyline 10 mg tablet 10 mg PO TID ascorbic acid (vitamin C) 500 mg tablet 500 mg PO QPM aspirin 81 mg tablet,delayed release (Adult Low Dose Aspirin) 81 mg PO HS calcium carbonate 600 mg-vitamin D3 10 mcg (400 unit) tablet (Calcium 600 + D(3)) 1 tab PO BID multivitamin 1 tab PO QAM simvastatin 20 mg tablet 20 mg PO QPM brimonidine 0.1 % eye drops (Alphagan P) 1 drp OPB BID travoprost 0.004 % eye drops (Travatan Z) 1 drp OPB HS glucosamine HCl 500 mg tablet 500 mg PO BID pantoprazole 40 mg tablet,delayed release (Protonix) 40 mg PO QAM warfarin 5 mg tablet See Rx Instructions PO UD acetaminophen 500 mg tablet (Tylenol Extra Strength) 1,000 mg PO Q8 PRN ASK your prescriber and surgeon warfarin 5 mg tablet See Rx Instructions PO UD STOP taking 2 weeks before surgery (or as soon as possible if surgery is within 2 weeks) glucosamine HCl 500 mg tablet 500 mg PO BID DO NOT take the morning of surgery calcium carbonate 600 mg-vitamin D3 10 mcg (400 unit) tablet (Calcium 600 + D(3)) 1 tab PO BID multivitamin 1 tab PO QAM Take morning of surgery With a small sip of water, OTHERWISE NOTHING TO EAT OR DRINK AFTER MIDNIGHT: amitriptyline 10 mg tablet 10 mg PO TID brimonidine 0.1 % eye drops (Alphagan P) 1 drp OPB BID pantoprazole 40 mg tablet,delayed release (Protonix) 40 mg PO QAM acetaminophen 500 mg tablet (Tylenol Extra Strength) 1,000 mg PO Q8 PRN(if nee ded) Take evening before surgery amitriptyline 10 mg tablet 10 mg PO TID ascorbic acid (vitamin C) 500 mg tablet 500 mg PO QPM aspirin 81 mg tablet,delayed release (Adult Low Dose Aspirin) 81 mg PO HS (unless surgeon directed otherwise) calcium carbonate 600 mg-vitamin D3 10 mcg (400 unit) tablet (Calcium 600 + D(3)) 1 tab PO BID simvastatin 20 mg tablet 20 mg PO QPM brimonidine 0.1 % eye drops (Alphagan P) 1 drp OPB BID travoprost 0.004 % eye drops (Travatan Z) 1 drp OPB HS acetaminophen 500 mg tablet (Tylenol Extra Strength) 1,000 mg PO Q8 PRN(if needed) Other Notes If you have any questions please call us at [phone] or [phone] or [phone] or [phone]
--- NOTE | 2022-10-10 15:10 | Anesthesiology Consultation ---
Date of Service October 10, 2022 Assessment & Plan (1) Encounter for pre-operative examination: - Check coags AM DOS (warfarin instructions per surgeon/prescriber- lovenox bridging instructions per [facility] AC clinic, last dose of lovenox 10/22 AM- advised to take last dose more than 24 hours before surgery d/t neuraxial anesthesia- patient verbalized understanding, will plan to take prior 10/22/22 prior to 0600) - COVID screening: Per assessment on 10/10: No known COVID-19 positive contacts or current COVID-19 related symptoms. Travel screen negative. Patient vaccinated. At surgeon discretion if preop Covid testing being done. - Outpatient joint assessment: Pt currently scheduled for inpatient pathway. If surgeon requests review for outpatient joint pathway, patient is not recommended candidate for outpatient joint program from anesthesia standpoint. -Received old anesthesia records[place]por[place]aphy anterior with [place] [facility] [place] Per anesthesia records, they were aware of known history of successful glidescope intubation in the past. For this given procedure, records indicate atraumatic attempt x1 with LMA. - S/P Left TKA (10/25/20): SAB at L3/4 (x1 attempt) + PNB at [facility]. No issues noted per post-op anesthesia progress note. - PCP visit (10/16/22): "Given stable labs and exam, patient is medically optimized for the scheduled right TKA" Chart Review Chart Review: Acceptable Risk for Surgery and Patient seen in Pre Admission Testing Teaching & Discussion Pre-Anesthesia Teaching/Discussion Notes: Instructed NPO after midnight before surgery,except medications with 15 cc of water. Medication instructions provided according to the PAT guidelines. History Surgery Operation Date: 10/23/22 07:00 Proposed Procedures p Right Total Knee Arthroplasty - Juan Vazquez MD Height/Weight Height: 5 ft 4 in Weight: 80.2 kg Allergies Allergy/AdvReac Type Severity Reaction Status Date / Time Sulfa (Sulfonamide Allergy Severe Swelling Verified 10/15/22 10:44 Antibiotics) of throat polaroid picture chemicals Allergy Severe Rash, skin Uncoded 10/15/22 10:44 irritation bandages Allergy Mild Rash Uncoded 10/15/22 10:44 Medications Home Medications Medication Instructions Recorded Confirmed Last Taken amitriptyline 10 mg tablet 10 mg PO TID 12/20/17 10/15/2221 06:15 ascorbic acid (vitamin C) 500 mg 500 mg PO QPM 12/20/17 10/15/22 10/24/20 18:00 tablet aspirin 81 mg tablet,delayed 81 mg PO HS 12/20/17 10/15/22 10/24/20 21:00 release (Adult Low Dose Aspirin) calcium carbonate 600 mg-vitamin 1 tab PO BID 12/20/17 10/15/22 10/24/20 18:00 D3 10 mcg (400 unit) tablet (Calcium 600 + D(3)) multivitamin 1 tab PO QAM 12/20/17 10/15/22 10/24/20 07:00 simvastatin 20 mg tablet 20 mg PO QPM 12/20/17 10/15/22 10/24/20 21:00 brimonidine 0.1 % eye drops 1 drp OPB BID 11/13/18 10/15/22 10/25/20 06:15 (Alphagan P) travoprost 0.004 % eye drops 1 drp OPB HS 11/13/18 10/15/22 10/24/20 21:00 (Travatan Z) glucosamine HCl 500 mg tablet 500 mg PO BID 03/07/21 10/15/22 Unknown pantoprazole 40 mg tablet,delayed 40 mg PO QAM 01/29/22 10/15/22 Unknown release (Protonix) acetaminophen 500 mg tablet 1,000 mg PO Q8 PRN Pain 10/05/22 10/15/22 Unknown (Tylenol Extra Strength) enoxaparin 40 mg/0.4 mL See Rx Instructions subcut Q24H #6 10/15/22 10/15/22 Unknown subcutaneous syringe syringes warfarin 5 mg tablet See Rx Instructions PO UD #110 tabs 10/15/22 10/15/22 Unknown Past Medical History Medical History Breast cancer s/p right breast lumpetomy Degenerative arthritis DVT (deep venous thrombosis) 2004, 2008 Factor V Leiden Glaucoma Hx of malignant neoplasm of skin Hyperlipidemia Obesity Osteoarthritis Pulmonary embolism 2008 Exercise / Class Metabolic Activity II 4-5 Yardwork/Stairs/Walk up hill Past Family History Family History Father Hypertension Sister Bilateral kidney stones Protein C deficiency Aunt Diabetes Son Factor 5 Leiden mutation, heterozygous Other No family history of adverse response to anesthesia Past Surgical History Surgical History H/O bladder repair surgery Bladder prolapse H/O cerebral aneurysm repair Approximately 2014 [place] [place] H/O hysterectomy with oophorectomy History of bilateral tubal ligation History of colonoscopy History of difficult intubation Received old anesthesia records (Colporrhaphy anterior with mesh insertion- [facility] [place] Per anesthesia records, they were aware of known history of successful glidescope intubation in the past. For this given procedure, records indicate atraumatic attempt x1 with LMA. History of dilatation and curettage ~1979 Hx of tonsillectomy S/P breast lumpectomy Right S/P total knee replacement using cement Left TKA 10/25/20 @ [facility] Status post Mohs surgery Past Anesthesia History Difficult Airway and No Family Hx of Anesthesia Complications History of PONV No Hx of PONV and No Hx of Motion Sickness Social History Smoking Status: Never smoker Do You Dip or Chew Tobacco: No Hx Alcohol Use: Yes Alcohol type: wine alcohol intake frequency: holidays/special occasions only Hx Substance Use: No substance use type: does not use Review of Systems Patient denies chest pain, shortness of breath, dyspnea on exertion, fever, chills, cough, wheezing, palpitations. Physical Exam Vital Signs VITALS BP 126/84 P 83 TEMP 98.2 SP02 95%RA RESP 16 PHYSICAL Decreased cervical extension range of motion. Full TMJ range of motion. TMD 3 finger breaths Mallampati Score 2 Dentition: upper denture, several missing lower molars Lungs: clear throughout to auscultation Cardiac: regular rate and rhythm, no murmurs noted Spine: normal Carotid arteries: negative bruit Extremities: no LE edema Lab Results Anesthesia Preop Results Results Anesthesia Widget: WBC 6.69 K/ul (4.8-10.8) 10/10/22 Hgb 13.6 g/dl (12.0-16.0) 10/10/22 Hct 40.2 % (37.0-47.0) 10/10/22 Plt 249 K/uL (130-400) 10/10/22 Na 140 mmol/L (136-145) 10/10/22 K 3.9 mmol/L (3.5-5.1) 10/10/22 Cl 105 mmol/L (98-107) 10/10/22 CO2 25 mmol/L (21-32) 10/10/22 BUN 16 mg/dl (6-23) 10/10/22 Creat 0.75 mg/dl (0.6-1.2) 10/10/22 Glucose Level 91 mg/dl (70-99(Fasting)) 10/10/22 PT 24.0 Seconds (9.0-12.0) H 10/10/22 PTT 41.9 Seconds (21.0-31.0) H* 10/10/22 INR 2.3 (0.9-1.1) H 10/10/22 Urine Color Yellow 10/15/22 Urine Appearance Clear (Clear) 10/15/22 Urine pH 7.0 (4.5-7.5) 10/15/22 Urine Specific [place] 1.015 (1.000-1.030) 10/15/22 Urine Protein Negative (Negative) 10/15/22 Urine Glucose (UA) Negative (Negative) 10/15/22 Urine Ketones Negative (Negative) 10/15/22 Urine Blood Negative (Negative) 10/15/22 Urine Nitrite Positive (Negative) A 10/15/22 Urine Bilirubin Negative (Negative) 10/15/22 Urine Urobilinogen Negative (Negative) 10/15/22 Urine Leukocyte Esterase Negative (Negative) 10/15/22 Urine WBC (Auto) 5-10 /hpf (0-5) H 10/15/22 Urine RBC (Auto) 0-4 /hpf (0-4) 10/15/22 Urine Hyaline Casts (Auto) 0 /lpf (0-5) 10/15/22 Urine Epithelial Cells (Auto) 0-5 /lpf (0-5) 10/15/22 Urine Bacteria (Auto) 2+ (Negative) H 10/15/22 Blood Type A Positive 10/10/22 Antibody Screen NEGATIVE 10/10/22 Testing Laboratory Results Surgeon's office made aware of abnormal UA* Electrocardiogram Date: 10/10/22 SR with PACs at 85bpm. NS STA. Chest X-Ray Date: 12/22/21 FINDINGS: Lung volumes are normal. Lungs are clear. There is no pneumothorax or pleural effusion. Cardiac size is normal. Mediastinal contours are normal. There is no evidence for pulmonary edema. IMPRESSION: No acute cardiopulmonary findings. COVID-19 Risk Screen Screening Information COVID-19 Screen Date: 10/10/22 Exposure 21 Days Family/Household +COVID Last 21 Days: No Exposure 10 Days Any COVID Exposure Last 10 Days: No Symptoms Last 10 Days Experienced COVID Sx Last 10 Days: No + COVID 0-90 Days COVID + in Last 0-90 Days: No
[2022-10-23] MEDS ORDERED: oxyCODONE HCL 10 MG TABCR (OxyCONTIN) PO SCH (06:00)
[2022-10-23] MEDS ORDERED: traMADol HCL 50 MG TABLET PO SCH (06:00)
[2022-10-23] MEDS ORDERED: ACETAMINOPHEN 500 MG TAB PO SCH (06:00)
[2022-10-23] MEDS ORDERED: ROPIVACAINE 0.5% INFIL SCH (06:00)
[2022-10-23] MEDS ORDERED: BUPIVACAINE 0.75% INFIL SCH (06:00)
[2022-10-23] MEDS ORDERED: METOCLOPRAMIDE HCL 10 MG TABLET PO SCH (06:00)
[2022-10-23] MEDS ORDERED: CeleBREX 200 MG CAP PO SCH (06:00)
[2022-10-23] MEDS ORDERED: [UNRECOGNIZED DRUG - OTHER] INFIL SCH (06:00)
[2022-10-23] MEDS ORDERED: dexAMETHasone 4 MG TAB PO SCH (06:00)
[2022-10-23] MEDS ORDERED: ceFAZolin 2000MG 2,000 MG/15 ML SYR IV SCH (06:00)
[2022-10-23] MEDS ORDERED: HCL INFIL SCH (06:00)
[2022-10-23] MEDS ORDERED: LR 500ML BOLUS, THEN 15ML/HR IV SCH (06:00)
[2022-10-23] MEDS ORDERED: FAMOTIDINE 20 MG TAB PO SCH (06:00)
[2022-10-23] MEDS ORDERED: LR 60ML/HR IV SCH (06:00)
[2022-10-23] MEDS ORDERED: EPINEPHRINE INFIL SCH (06:00)
[2022-10-23] MEDS ORDERED: TRANEXAMIC ACID 1,000 MG **IV Pre-op IV SCH (06:00)
[2022-10-23] MEDS ORDERED: ROPIVACAINE 0.5% HCL/PF 150 MG, BUPIVACAINE 0.75% MPF 20 ML, EPINEPHrine 0.15 MG, dexAM... INFIL SCH (06:00)
[2022-10-23] MEDS ORDERED: BUPIVACAINE 0.5 % 5 MG/1 ML PF 10ML VIAL ONE (06:13)
[2022-10-23] MEDS ORDERED: ROPIVACAINE 0.5% 5 MG/ML 30 ML VIAL ONE (06:13)
[2022-10-23] MEDS ORDERED: fentaNYL citrate PF 100 MCG/2 ML VIAL IV PRN (06:36)
[2022-10-23] MEDS ORDERED: ePHEDrine sulfate 50 MG/ML AMP IV PRN (06:36)
[2022-10-23] MEDS ORDERED: ATROPINE SULFATE 0.1 MG/ML 10ML SYR IV PRN (06:36)
[2022-10-23] MEDS ORDERED: ONDANSETRON INJ 2 MG/ML 2 ML VIAL IV PRN ×2 (06:36→12:00)
[2022-10-23] MEDS ORDERED: ORTHO JOINT ANESTHETIC ONE (06:42)
--- NOTE | 2022-10-23 06:44 | History & Physical Bridge Note ---
Date of Service October 23, 2022 History & Physical Bridge Note I have examined the patient, reviewed the History & Physical and in the interval since the performance of the History & Physical I have noted the following changes of clinical significance: no changes noted INR yesterday normal. Last dose of Lovenox 24 hours ago. No UTI symptoms. Finished antibiotics. PT/INR PTT pending.
[2022-10-23] MEDS ORDERED: Nursing to Pharmacy Communication SCH (06:45)
[2022-10-23] MEDS ORDERED: PROPOFOL IV EMULSION 10 MG/ML 20 ML VIAL IV ONE (06:45)
[2022-10-23] MEDS ORDERED: fentaNYL citrate PF 100 MCG/2 ML VIAL ONE (06:56)
[2022-10-23] MEDS ORDERED: MIDAZOLAM HCL 1 MG/ML 2ML VIAL ONE (06:56)
--- NOTE | 2022-10-23 10:01 | Operative Report ---
Post Operative Report Pre & Post Diagnosis Operation Date: 10/23/22 07:00 Pre-Op Diagnosis: Right Knee Osteoarthritis Post-Op Diagnosis: Right Knee Osteoarthritis I identified the patient and participated in the time-out.: Yes Procedure Operation Date: 10/23/22 07:00 Actual Procedures p Right Total Knee Arthroplasty(Right) - Juan Vazquez MD Surgeon Juan Vazquez MD Material Control Specialist KIKI jeter no resident or fellow available Estimated Blood Loss 5 Findings Consistent with Post-Op Diagnosis Specimens Resected bone and soft tissue Anesthesia Type MAC Spinal Regional Complications none Disposition Accompanied Patient To Recovery: No Disposition: Recovery Room Indications Patient is 67 years old and has severe right knee arthritis refractory to nonsurgical methods of management. She has elected to proceed with operative intervention. Description of Procedure Informed consent. Patient identified. She identified the operative site as the right knee. I marked with my initials. A preop surgical timeout performed. A preop dose of IV antibiotics given. She was taken to the operating room positioned supine on the operating room table. Tourniquet applied to the right thigh and a padded post under the calf. The leg was prepped and draped in the usual sterile fashion. DVT prophylaxis intraoperatively with foot pumps and postop early mobility and chemoprophylaxis. She will start back on her Coumadin and have bridging Lovenox. The Examiner anesthesia revealed range of motion 0/7/120. The knee was stable to varus and valgus stress and had neutral alignment. Preop txa. Limb exsanguinated with the Esmarch. Tourniquet inflated 250 mmHg. Midline longitudinal incision was made followed by medial parapatellar arthrotomy. Soft tissue on the anterior aspect of the distal femur was resected. The synovial reflection in the lateral gutter was released. The retropatellar fat pad was resected and a medial release was performed. Semimembranosus left intact. ACL was deficient. Notch osteophytes removed. PCL sacrificed and the tibia was then subluxated and the patella easily everted. There were large marginal osteophytes throughout the knee which were removed. The patella femur and tibia showed diffuse grade 4 changes. There was a central erosion laterally along with medial wear medially. A harbor boat pilot hole was drilled between the tibial spines and just in front of them and an intramedullary alignment ryley was inserted. This was aligned to the tibial tubercle and set to resect 10 mm off of the intact lateral cartilage which corresponded to about a 4 mm cut medially. The extra medullary alignment ryley was applied and the slope and coronal plane alignment were checked. The ryley bisected the ankle joint and intersected the second ray and tibial slope was parallel. The cut was then made and sized to a 2 or 2.5. Posterior marginal osteophytes were removed. Attention was turned to the femur where a harbor boat pilot hole was drilled into the distal femur followed by the insertion of the intramedullary cutting guide. This was set to 7 degree valgus angle based upon preop templating and a 14 mm thick cut based upon her flexion contracture. This cut was made protecting and distal to the collateral ligaments. The extension gap was a loose 10 and could accommodate a 12.5. The epicondylar axis was marked out and the distal femoral sizing guide was applied and sized with 3. The external rotation drill holes were made which matched the epicondylar axis and the size 3 anterior down cutting block was applied. The cuts were then made. Posterior osteophytes especially medially were removed. The box cutting guide was applied and lateralized and the box cut was made. The flexion gap was a slightly loose 12.5 medially. Trial femur applied. The tibia was then prepared with the keel and punch using the 2.5 spacer aligned to the tibial tubercle. The knee was reduced with a 12.5 mm poly which showed trace MCL laxity in full extension and 90 degrees and there was 1+ mid position MCL laxity and trace LCL laxity in mid position. I was able to go up to the 15 mm spacer and eliminate the mid flexion laxity and preserve full extension while tightening things up at 0 and 90. Patella was 23 mm in thickness. 32 size patella was selected. Marginal osteophytes were removed and the paddle was applied set to preserve 16 mm of bone. The cut was made the paddle was distal lysed and medialized and aligned to the knee in flexion and the lug holes were drilled. Patellar tracking was off with no hands technique but once the tourniquet was now patella tracking was fine.. The canals were plugged. Ortho joint mix injected in the back of the knee. The bony surfaces were meticulously prepared with pulsatile lavage. 2 bags of Simplex P cement were mixed and then while in the doughy state the femur tibia and patella were cemented in place held in full extension until cement hardened. Tourniquet let down after 93 minutes of inflation and meticulous hemostasis was performed with minimal bleeding. The soft tissues were kept moist throughout the surgical procedure and the leg was reirrigated. Extraneous cement in the back of the knee was removed. I then retrialed with a 12.5 and 50 mm thick poly and selected the 15 mm. This gave full extension and good stability. [place] assisted flexion with extensor mechanism closed at the end of the procedure was 120 degrees. Composite patellar thickness at the conclusion the operation was 23 mm. The final polyethylene was applied. The extensor mechanism was closed above the equator the patella with interrupted #2 FiberWire's. Below the equator with running #1 Vicryl's. The skin was closed in layers with 0 and 2-0 Vicryl's followed by jaime. The leg was cleaned with wet and dry sponges and a soft sterile dressing was applied Xeroform 4 x 4's ABD soft wrap full-length Sin wrap and a knee immobilizer. Patient awakened from anesthesia without difficulty and taken to the recovery room in stable condition. Resected bone and soft tissue sent for specimen. Counts were correct and blood loss is estimated to be 5 cc. At the conclusion the operation I spoke to her and informed him my findings and postop instructions were given. Rehabilitate according to the standard total knee protocol. Components inserted with a J[employer]J PFC Sigma rotating platform knee a size 3 right posterior stabilized femur a size 2.5 mobile-bearing keeled tibial tray a 32 mm 3 peg oval dome patella and a size 15 mm posterior stabilized size 3 poly. I attest to the content of the Intraoperative Record and any orders documented therein. Any exceptions are noted below.
--- NOTE | 2022-10-23 10:18 | Operative Report ---
Post Operative Report Pre & Post Diagnosis Operation Date: 10/23/22 07:00 Pre-Op Diagnosis: Right Knee Osteoarthritis Post-Op Diagnosis: Right Knee Osteoarthritis I identified the patient and participated in the time-out.: Yes Procedure Operation Date: 10/23/22 07:00 Actual Procedures p Right Total Knee Arthroplasty(Right) - Juan Vazquez MD Surgeon Juan Vazquez M.D. Stained Glass Painter KIKI jeter no resident or fellow available Estimated Blood Loss 5 Findings Consistent with Post-Op Diagnosis DJD right knee Specimens bone and soft tissue Anesthesia Type MAC Spinal Regional Description of Procedure Patient was taken to the operating room, placed under general anesthesia. Time out performed, prepped and draped in routine sterile fashion. I was present during the entire procedure and assisted with positioning, tissue retraction, sizing of implants, implantation of hardware, closure and dressings. Please see Dr. Vazquez's operative report for further details regarding today's procedure. Patient was awakened and taken to the recovery room in stable condition. I attest to the content of the Intraoperative Record and any orders documented therein. Any exceptions are noted below.
--- NOTE | 2022-10-23 10:47 | XRay Report ---
XR knee RT 1 or 2V routine CLINICAL HISTORY: Postoperative evaluation. COMPARISON: Leg length study October 10, 2022. FINDINGS: Alignment of the total right knee arthroplasty is anatomic. There is no periprosthetic fra cture. There are skin jaime. No unexpected radiopaque foreign bodies are present. IMPRESSION: Expected findings following total right knee arthroplasty. ACT 112: Negative or not required by law. Electronically signed by: Chadwick Chan M.D. 10/23/2022 10:46 AM
[2022-10-23] MEDS ORDERED: bisacodyL 10 MG SUPP PR PRN (12:00)
[2022-10-23] MEDS ORDERED: METOCLOPRAMIDE HCL INJ 5 MG/ML 2 ML VIAL IV PRN (12:00)
[2022-10-23] MEDS ORDERED: MAGNESIUM HYDROXIDE SUSP 30 ML UDC PO PRN (12:00)
[2022-10-23] MEDS ORDERED: oxyCODONE HCL IR 5 MG TAB (IMMEDIATE RELEASE) PO PRN (12:00)
[2022-10-23] MEDS ORDERED: SODIUM CHLORIDE 0.9% 1000ML 1,000 ML IV SCH (12:00)
[2022-10-23] MEDS ORDERED: HYDROmorphone INJ 1 MG/ML SYRINGE IV PRN (12:00)
[2022-10-23] MEDS ORDERED: HYDROmorphone INJ 0.5 MG/0.5 ML SYR IV PRN (12:00)
[2022-10-23] MEDS ORDERED: NALOXONE HCL 0.4 MG/1 ML VIAL/CARP IV PRN (12:00)
--- NOTE | 2022-10-23 12:00 | Anesthesiology Progress Note ---
Date of Service October 23, 2022 Anesthesia Post Procedure Vital Signs Vital Signs: Temp Pulse Pulse Resp BP Pulse Ox O2 Del Method 10/23/22 11:45 77 16 113/82 92 Nasal Cannula 10/23/22 11:30 84 15 124/86 95 Nasal Cannula 10/23/22 11:15 98.1 F 76 16 102/72 95 Nasal Cannula 10/23/22 11:05 82 15 131/81 96 Nasal Cannula 10/23/22 10:55 75 17 128/81 98 Nasal Cannula 10/23/22 10:45 71 14 122/82 94 Nasal Cannula 10/23/22 10:35 75 17 120/85 95 Nasal Cannula 10/23/22 10:25 75 16 106/85 95 Nasal Cannula 10/23/22 10:15 79 20 106/85 96 Oxymask 10/23/22 10:05 76 13 120/76 97 Oxymask 10/23/22 09:57 98.4 F 82 15 110/79 92 Oxymask 10/23/22 05:40 97.9 F 82 18 138/82 95 Room Air O2 Flow Rate 10/23/22 11:45 2 10/23/22 11:30 2 10/23/22 11:15 2 10/23/22 11:05 2 10/23/22 10:55 2 10/23/22 10:45 2 10/23/22 10:35 2 10/23/22 10:25 2 10/23/22 10:15 4 10/23/22 10:05 11 10/23/22 09:57 11 10/23/22 05:40 Transfer of Care Handoff Completed per policy Notes Mental Status: alert / awake / arousable and participated in evaluation Patient Amnestic to Procedure: Yes Nausea / Vomiting: adequately controlled Pain: adequately controlled Airway Patency, RR, SpO2: stable & adequate BP & HR: stable & adequate Hydration State: stable & adequate Neuraxial Anesthesia: was administered and sensory block is resolving Anesthetic Complications: no major complications apparent and Pt Satisfied with anesthetic care
[2022-10-23] MEDS: KETOROLAC TROMETHAMINE 15 MG/ML VIAL IV SCH ×2 (13:00→17:51)
[2022-10-23] MEDS: AMITRIPTYLINE HCL 10 MG TAB PO SCH ×2 (13:55→20:17)
[2022-10-23] MEDS: ACETAMINOPHEN 500 MG TAB PO SCH ×2 (13:55→22:25)
--- NOTE | 2022-10-23 14:38 | Orthopedic Progress Note ---
Date of Service October 23, 2022 Assessment & Plan (1) S/P total knee arthroplasty: Plan: POD 0 - Right TKA with Dr. Vazquez Continue home medications Resume regular diet Resume chronic Coumadin tonight and bridge with Lovenox 40 mg SQ starting tomorrow. WBAT right leg with knee immobilizer on when out of bed. Ice and elevation to right knee as needed for swelling. PT/OT to start tomorrow Case management for disposition - plans for discharge to home with home health tomorrow. Will re-eval tomorrow morning. Dr. Vazquez present for today's visit. All questions answered. Admission and Anticipated Discharge Date Admission Date: October 23, 2022 Subjective Patient is doing well. Sitting in bed. Ate lunch. Denies and nausea or vomit ing. States that she is getting feeling back in her leg. She has not been out of bed. Physical Exam Musculoskeletal: Right knee dressing intact. Clean and dry. No distal edema. No calf pain. Normal strength with dorsiflexion, plantarflexion, inversion or eversion. Tolerates log rolling of right hip. Results & Data Vital Signs (Past 12 Hours) Vital Signs Temp Pulse Pulse Resp BP Pulse Ox O2 Del Method 10/23/22 14:00 36.5 C 97 H 16 147/87 H 97 Nasal Cannula 10/23/22 13:57 Nasal Cannula 10/23/22 13:00 36.4 C L 86 15 151/81 H 97 Nasal Cannula 10/23/22 12:30 36.4 C L 83 16 129/78 97 Room Air 10/23/22 12:00 36.5 C 85 15 123/81 96 Nasal Cannula 10/23/22 11:45 77 16 113/82 92 Nasal Cannula 10/23/22 11:30 84 15 124/86 95 Nasal Cannula 10/23/22 11:15 36.7 C 76 16 102/72 95 Nasal Cannula 10/23/22 11:05 82 15 131/81 96 Nasal Cannula 10/23/22 10:55 75 17 128/81 98 Nasal Cannula 10/23/22 10:45 71 14 122/82 94 Nasal Cannula 10/23/22 10:35 75 17 120/85 95 Nasal Cannula 10/23/22 10:25 75 16 106/85 95 Nasal Cannula 10/23/22 10:15 79 20 106/85 96 Oxymask 10/23/22 10:05 76 13 120/76 97 Oxymask 10/23/22 09:57 36.9 C 82 15 110/79 92 Oxymask 10/23/22 05:40 36.6 C 82 18 138/82 95 Room Air O2 Flow Rate 10/23/22 14:00 2 10/23/22 13:57 2 10/23/22 13:00 2 10/23/22 12:30 10/23/22 12:00 2 10/23/22 11:45 2 10/23/22 11:30 2 10/23/22 11:15 2 10/23/22 11:05 2 10/23/22 10:55 2 10/23/22 10:45 2 10/23/22 10:35 2 10/23/22 10:25 2 10/23/22 10:15 4 10/23/22 10:05 11 10/23/22 09:57 11 10/23/22 05:40 Diagnostic Findings XR knee RT 1 or 2V routine CLINICAL HISTORY: Postoperative evaluation. COMPARISON: Leg length study October 10, 2022. FINDINGS: Alignment of the total right knee arthroplasty is anatomic. There is no periprosthetic fracture. There are skin jaime. No unexpected radiopaque foreign bodies are present. IMPRESSION: Expected findings following total right knee arthroplasty.
[2022-10-23] MEDS: ceFAZolin 2000MG 2,000 MG/15 ML SYR IV SCH (15:51)
[2022-10-23] MEDS ORDERED: WARFARIN SOD 10 MG TAB PO SCH (16:00)
[2022-10-23] MEDS ORDERED: TRANEXAMIC ACID / 0.7% NACL 1,000 MG/100 ML BAG IV SCH (16:15)
[2022-10-23] MEDS: CALCIUM 600MG + VIT D 400 IU TAB PO SCH (20:17)
[2022-10-23] MEDS: DOCUSATE SODIUM 100 MG CAP PO SCH (20:17)
[2022-10-23] MEDS ORDERED: TRAVOPROST Z 0.004% OPH SOLN 2.5 ML BTL OPB SCH (21:00)
[2022-10-23] MEDS ORDERED: SIMVASTATIN 20 MG TAB PO SCH (21:00)
[2022-10-23] MEDS ORDERED: SENNA 8.6 MG TAB PO SCH (21:00)
[2022-10-23] MEDS ORDERED: ASCORBIC ACID 500 MG TAB PO SCH (21:00)
[2022-10-23] MEDS ORDERED: ASPIRIN 81 MG ECTAB PO SCH (21:00)
[2022-10-24] MEDS: KETOROLAC TROMETHAMINE 15 MG/ML VIAL IV SCH ×2 (00:34→05:24)
[2022-10-24] MEDS: ceFAZolin 2000MG 2,000 MG/15 ML SYR IV SCH (00:34)
[2022-10-24] MEDS: ACETAMINOPHEN 500 MG TAB PO SCH (05:24)
[2022-10-24 07:50] LABS: Hematocrit (blood only) 34.4 % (37.0-47.0); Hemoglobin 11.9 g/dl (12.0-16.0); Mean Corpuscular Hemoglobin 31.6 pg (25.0-34.0); Mean Corpuscular Hgb Conc 34.6 g/dL (32.0-36.0); Mean Corpuscular Volume 91.5 fL (80.0-100.0); Mean Platelet Volume 9.8 fL (9.4-12.4); Platelet Count 199 K/uL (130-400); RDW Coefficient of Variation 12.7 % (11.5-14.5); RDW Standard Deviation 42.3 fL (36.4-46.3); Red Blood Count 3.76 M/uL (4.20-5.40); White Blood Count 10.16 K/ul (4.8-10.8)
[2022-10-24] MEDS ORDERED: dexAMETHasone 4 MG TAB PO SCH (08:00)
[2022-10-24] MEDS: AMITRIPTYLINE HCL 10 MG TAB PO SCH (08:02)
[2022-10-24] MEDS: DOCUSATE SODIUM 100 MG CAP PO SCH (08:02)
[2022-10-24] MEDS: CALCIUM 600MG + VIT D 400 IU TAB PO SCH (08:02)
[2022-10-24 08:09] LABS: INR 1.1 (0.9-1.1); Prothrombin Time 12.2 Seconds (9.0-12.0)
[2022-10-24 08:13] LABS: BUN Creatinine Ratio 20.9 (10-20); Calcium 9.1 mg/dl (8.6-10.3); Creatinine Clr Calc Pharmacy 81.6 ml/min; Est GFR (African American) 103.9 ml/min; Est GFR (Non-African American) 89.7 ml/min; Potassium 3.4 mmol/L (3.5-5.1)
[2022-10-24] MEDS ORDERED: PANTOprazole 40 MG TAB PO SCH (09:00)
[2022-10-24] MEDS ORDERED: ENOXAPARIN INJ 40 MG/0.4 ML SYR SQ SCH (09:00)
[2022-10-24] MEDS ORDERED: MULTIVITAMIN TAB PO SCH ×2 (09:00)
--- NOTE | 2022-10-24 09:15 | Orthopedic Progress Note ---
Date of Service October 24, 2022 Assessment & Plan (1) S/P total knee arthroplasty: Plan: POD 1 - Right TKA with Dr. Vazquez Continue home medications. Pain well controlled with oral pain medications. Resume regular diet. Resume chronic Coumadin tonight and bridge with Lovenox 40 mg SQ starting today. WBAT right leg with knee immobilizer on when out of bed - immobilzer as needed for comfort. Ice and elevation to right knee as needed for swelling. PT/OT today Case management for disposition - plans for discharge to home with home health today. Dr. Vazquez present for today's visit. All questions answered. Admission and Anticipated Discharge Date Admission Date: October 23, 2022 Subjective No complaints of pain in right knee today. She states that she is pretty comfortable. She has been alternating oxycodone and Tylenol. She had her Lovenox injection this morning. Denies any nausea or vomiting, chest pains or shortness of breath, difficulty urinating. She had occupational therapy this morning and did well. She is awaiting physical therapy. Physical Exam Musculoskeletal: Right knee dressing is clean, dry and intact. Knee immobilizer is in place. Distal neurovascular function with sensation and pulses are normal. Strength is 5/5. She is able independently straight leg raise her right lower extremity today. No edema of the right foot. Capillary fill is brisk. Results & Data Vital Signs (Past 12 Hours) Vital Signs Temp Pulse Pulse Resp BP Pulse Ox O2 Del Method 10/24/22 06:42 36.4 C L 88 16 96 Room Air 10/24/22 03:13 145/82 H 10/24/22 02:39 36.5 C 90 16 97 Room Air 10/23/22 23:00 36.6 C 99 H 16 131/82 93 Room Air Laboratory Results 10/24/22 10/24/22 10/24/22 Range/Units 07:04 07:04 07:04 WBC 10.16 (4.8-10.8) K/ul RBC 3.76 L (4.20-5.40) M/uL Hgb 11.9 L (12.0-16.0) g/dl Hct 34.4 L (37.0-47.0) % MCV 91.5 (80.0-100.0) fL MCH 31.6 (25.0-34.0) pg MCHC 34.6 (32.0-36.0) g/dL RDW Std Deviation 42.3 (36.4-46.3) fL RDW Coeff of Noreen 12.7 (11.5-14.5) % Plt Count 199 (130-400) K/uL MPV 9.8 (9.4-12.4) fL PT 12.2 H (9.0-12.0) Seconds INR 1.1 (0.9-1.1) Sodium 142 (136-145) mmol/L Potassium 3.4 L (3.5-5.1) mmol/L Chloride 108 H (98-107) mmol/L Carbon Dioxide 26 (21-32) mmol/L Anion Gap 8 (3-11) BUN 14 (6-23) mg/dl Creatinine 0.67 (0.6-1.2) mg/dl Est Cr Clr Drug Dosing 81.6 ml/min Est GFR ( Amer) 103.9 ml/min Est GFR (Non-Af Amer) 89.7 ml/min BUN/Creatinine Ratio 20.9 H (10-20) Glucose 120 H (70-99(Fasting)) mg/dl Calcium 9.1 (8.6-10.3) mg/dl
--- NOTE | 2022-10-24 09:19 | Discharge Summary ---
Date of Service October 24, 2022 Discharge Data Procedures Performed Operation Date: 10/23/22 07:00 Actual Procedures p Right Total Knee Arthroplasty(Right) - Juan Vazquez MD Hospital Course (1) S/P total knee arthroplasty: Patient was kept in observation at [facility] after undergoing an elective right total knee arthroplasty on October 23, [address] Vazquez. The surgery was performed with spinal anesthesia, sedation and a peripheral nerve block. She was given 2 g of IV Ancef for surgical prophylaxis preoperatively and this was continued for 24 hours after surgery. In the recovery room she had an x-ray of her right knee which showed a stable prosthesis without complications. She tolerated her surgery well without any intraoperative complications. Postoperatively, she was allowed to weight-bear as tolerated right lower extremity with the assistance of a walker and a knee immobilizer when out of bed. Encouraged ice and elevation of her right lower extremity as needed for pain and swelling. She was given oxycodone, Toradol and IV Dilaudid as needed for pain medication. Her pain was well controlled while she was an inpatient. She was given a regular diet. She tolerated her diet well without any postoperative nausea or vomiting. Her home medications were continued. Her Coumadin was resumed on postoperative day 0 at 10 mg and she was bridged with Lovenox 40 mg subcuticularly starting on 10/24/22. Postoperative H&H was stable. Postoperative CMP was normal. She was seen and evaluated by Occupational Therapy and physical therapy. She did well out of bed and was deemed safe for discharge on 10/24/2022. Her dressings from surgery remained in place and will be changed as an outpatient. Discharge instructions were reviewed. All questions were answered. She knows to call with any further problems, questions or concerns. She was discharged to her home in stable condition on October 24, 2022. Pain medications were sent to her pharmacy.
== END 2022-10-24 12:06 | disposition home health service (06) ==
LOC: ASU 05:09 → 3E 05:09